=== PATIENT | male | born 1960 | race Caucasian/White ===

== ENCOUNTER 2020-10-24 10:08 | Emergency (ER) | payer SELFPAY ==
[~2020-10-24] VITALS: Ht 170.2 cm; Wt 130.0 kg
[2020-10-24] MEDS ORDERED: NS 1,000 ML IV ONE (12:10)
[2020-10-24 12:35] LABS: BASO # 0.1 10^3/uL (0.0-0.2); BASO % 1.2 % (0.0-1.0); EOS # 0.2 10^3/uL (0.0-0.5); EOS % 1.8 % (0.0-3.0); HEMOGLOBIN 15.2 g/dl (13.5-17.5); LYMPH # 1.5 10^3/uL (1.5-5.0); LYMPH % 13.8 % (24.0-44.0); MEAN CORPUSCULAR HEMOGLOBIN 34.1 pg (27.0-33.0); MEAN CORPUSCULAR HGB CONC 35.3 g/dl (32.0-36.5); MEAN CORPUSCULAR VOLUME 96.4 fl (80.0-96.0); MONO # 1.5 10^3/uL (0.0-0.8); MONO % 14.6 % (2.0-8.0); NEUTROPHILS # 7.1 10^3/uL (1.5-8.5); NEUTROPHILS % 67.7 % (36.0-66.0); PLATELET COUNT, AUTOMATED 250 10^3/uL (150-450); RED BLOOD COUNT 4.46 10^6/uL (4.30-6.10)
[2020-10-24 12:41] LABS: WHITE BLOOD COUNT 10.5 10^3/uL (4.0-10.0)
[2020-10-24 12:45] LABS: INR 0.93; PARTIAL THROMBOPLASTIN TIME 25.1 SECONDS (24.2-38.5); PROTHROMBIN TIME 12.7 SECONDS (12.5-14.3)
[2020-10-24 13:00] LABS: ERYTHROCYTE SEDIMENTATION RATE 21 mm/hr (0-20)
[2020-10-24 13:12] LABS: ALBUMIN 3.6 GM/DL (3.2-5.2); ALT/SGPT 45 U/L (12-78); BILIRUBIN,DIRECT 0.1 MG/DL (0.0-0.2); BILIRUBIN,TOTAL 0.4 MG/DL (0.2-1.0); BLOOD UREA NITROGEN 6 MG/DL (7-18); C REACTIVE PROTEIN QUANTITATIV 1.06 MG/DL (0.00-0.30); CALCIUM LEVEL 8.6 MG/DL (8.5-10.1); CARBON DIOXIDE LEVEL 27 MEQ/L (21-32); CHLORIDE LEVEL 96 MEQ/L (98-107); CREATININE FOR GFR 0.62 MG/DL (0.70-1.30); FREE T4 0.72 NG/DL (0.76-1.46); GLOMERULAR FILTRATION RATE > 60.0 (>56); GLUCOSE, FASTING 125 MG/DL (70-100); POTASSIUM SERUM 3.5 MEQ/L (3.5-5.1); SODIUM LEVEL 134 MEQ/L (136-145); TOTAL PROTEIN 7.5 GM/DL (6.4-8.2)
[2020-10-24] MEDS ORDERED: DOXYCYCLINE HYCLATE 100MG TABLET PO ONE (13:25)
[2020-10-24 13:26] LABS: AMPHETAMINES LEVEL URINE NEGATIVE (NEGATIVE); BARBITURATES URINE NEGATIVE (NEGATIVE); BENZODIAZEPINES URINE NEGATIVE (NEGATIVE); CANNABINOIDS URINE POSITIVE (NEGATIVE); COCAINE METABOLITE URINE NEGATIVE (NEGATIVE); METHADONE URINE NEGATIVE (NEGATIVE); OPIATES URINE NEGATIVE (NEGATIVE); PHENCYCLIDINE URINE NEGATIVE (NEGATIVE)
[2020-10-24] MEDS ORDERED: DOXY1CAP62 PO (13:26)
[2020-10-24] MEDS ORDERED: HYDR-3363 PO (13:26)
[2020-10-24] MEDS ORDERED: TRIA0.027 TOP (13:26)
[2020-10-24] MEDS ORDERED: PRED20TA PO (13:26)
[2020-10-24 14:07] VITALS: BP 164/90
--- NOTE | 2020-10-24 14:32 | REP ---
INDICATION: alcohol use, bruising to arms. COMPARISON: None. TECHNIQUE: PA lateral FINDINGS: Lungs are well inflated. CP angle sharply defined without effusion. There is no lateral pleural thickening. Some minor apical pleural scarring. There is no acute infiltrate pulmonary nodule or mass the heart, mediastinal and hilar contours are grossly intact. There are a few cuffed bronchi in the perihilar regions that may reflect reactive airway disease or bronchitis. Calcifications at the aortic arch without aneurysm. No widening of mediastinum. Airway intact. The bony thorax shows marginal osteophytes and degenerative changes without compression deformity. There is a healed posterolateral right 9th rib with contour irregularity. No definite acute fracture. No free air under the diaphragm. IMPRESSION: 1. No acute cardiopulmonary disease. May be some changes of perihilar bronchitis or reactive airway disease but no infiltrate, effusion, cardiomegaly or edema. 2. Degenerative changes in the spine without compression deformity. <Electronically signed by Gurwinder Meade > 10/24/20 [id number]
== END 2020-10-24 14:09 | disposition home or self-care (01) ==
LOC: M ED 10:08
DX: L01.01 Non-bullous impetigo (principal); E11.9 Type 2 diabetes mellitus without complications; I10 Essential (primary) hypertension; G51.0 Bell's palsy; F17.200 Nicotine dependence, unspecified, uncomplicated; F12.10 Cannabis abuse, uncomplicated; Z79.52 Long term (current) use of systemic steroids; Z79.899 Other long term (current) drug therapy; Z88.6 Allergy status to analgesic agent